=== PATIENT | male | born 1995 | race Caucasian/White ===

== ENCOUNTER 2016-06-17 11:45 | Emergency (ER) | payer BC ==
[~2016-06-17] VITALS: Ht 170.2 cm; Wt 90.0 kg
[2016-06-17 11:52] VITALS: Ht 170.2 cm; Wt 90.0 kg
[2016-06-17] MEDS ORDERED: HYDROCODONE/APAP (5/325) TAB PO ONE (12:00)
--- NOTE | 2016-06-17 12:22 | RADRPT ---
PROCEDURE: XR Ankle. CLINICAL INDICATION: Ankle pain TECHNIQUE: Three views of the right ankle are available for review COMPARISON: None available FINDINGS: There is a comminuted and minimally displaced fracture of the distal fibula and lateral malleolus wi th a predominant oblique fracture line. There is mild lateral angulation of the distal fragment. T he ankle mortise is otherwise preserved. The tibia is intact. The remaining osseous structures are intact. There is marked soft tissue swelling and a tibiotalar joint effusion. IMPRESSION: 1. Mildly comminuted, minimally displaced and angulated fracture of the lateral malleolus. 2. Soft tissue swelling and tibiotalar joint effusion. RPTAT: QQ .Tony Hughes MD, Date Time Electronically viewed and signed by .Tony Hughes MD, MD on 06/17/2016 12:21 .d/
[2016-06-17] MEDS ORDERED: HYDR-902 PO (13:06)
[2016-06-17] MEDS ORDERED: IBUP800T25 PO (13:06)
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
[2016-06-17 14:01] VITALS: BP 113/78; PULSE 74; RESP 18; TEMP 97.8
== END 2016-06-17 14:10 | disposition home or self-care (01) ==
LOC: E/R 11:45
DX: S82.61XA Displaced fracture of lateral malleolus of right fibula, initial encounter for closed fracture (principal); W18.49XA Other slipping, tripping and stumbling without falling, initial encounter; Y92.9 Unspecified place or not applicable

== ENCOUNTER 2018-01-07 15:48 | Emergency (ER) | END 2018-01-07 19:16 | disposition home or self-care (01) ==